=== PATIENT | male | born 1970 | race Caucasian/White ===

== ENCOUNTER → 2019-08-14 09:38 | Outpatient (BNVA) | payer OTHER, SELFPAY | PROVIDERS: Family Provider Family Medicine; Visit Provider Nurse Practitioner Psychiatric/Mental Health | DX: F43.12 Post-traumatic stress disorder, chronic (principal); F33.2 Major depressive disorder, recurrent severe without psychotic features; F10.21 Alcohol dependence, in remission; F17.220 Nicotine dependence, chewing tobacco, uncomplicated | CPT/HCPCS: 99214 ==

== ENCOUNTER → 2019-09-18 16:03 | Outpatient (BNVA) | payer OTHER, SELFPAY | PROVIDERS: Family Provider Family Medicine; Visit Provider Nurse Practitioner Psychiatric/Mental Health | DX: F43.12 Post-traumatic stress disorder, chronic (principal); F33.2 Major depressive disorder, recurrent severe without psychotic features; F10.21 Alcohol dependence, in remission; F17.220 Nicotine dependence, chewing tobacco, uncomplicated | CPT/HCPCS: 99213 ==

== ENCOUNTER → 2020-05-28 15:45 | Outpatient (BNVA) | payer BC, SELFPAY | PROVIDERS: Family Provider Family Medicine; PCP Family Medicine; Visit Provider Family Medicine | DX: I10 Essential (primary) hypertension (principal); N40.1 Benign prostatic hyperplasia with lower urinary tract symptoms; R39.11 Hesitancy of micturition | CPT/HCPCS: 80053; 80061; 82043; 84153; 85025 ==

== ENCOUNTER → 2020-05-30 15:02 | Outpatient (BNVA) | payer BC, SELFPAY | PROVIDERS: Family Provider Family Medicine; PCP Family Medicine; Visit Provider Family Medicine | DX: E87.5 Hyperkalemia (principal); R25.2 Cramp and spasm; Z68.39 Body mass index [BMI] 39.0-39.9, adult; F17.219 Nicotine dependence, cigarettes, with unspecified nicotine-induced disorders; Z71.6 Tobacco abuse counseling; Z71.89 Other specified counseling | CPT/HCPCS: 80048 ==

== ENCOUNTER → 2020-06-27 08:30 | Outpatient (BNVA) | payer BC, SELFPAY | PROVIDERS: Family Provider Family Medicine; PCP Family Medicine; Visit Provider Family Medicine | DX: N52.1 Erectile dysfunction due to diseases classified elsewhere (principal); E29.1 Testicular hypofunction | CPT/HCPCS: 84403 ==

== ENCOUNTER → 2020-09-30 15:46 | Outpatient (BNVA) | payer BC, SELFPAY | PROVIDERS: Family Provider Family Medicine; PCP Family Medicine; Referring Provider Dermatology; Visit Provider Podiatrist Foot & Ankle Surgery | DX: M79.672 Pain in left foot (principal) | CPT/HCPCS: 73630 ==

== ENCOUNTER → 2020-10-22 15:43 | Outpatient (BNVA) | payer BC, SELFPAY | PROVIDERS: Family Provider Family Medicine; PCP Family Medicine; Visit Provider Family Medicine | DX: M54.5 Low back pain (principal) | CPT/HCPCS: 80053; 85025; 85651; 86038; 86140; 86431; 86812 ==

== ENCOUNTER 2020-10-31 15:23 | Outpatient (CLI) | payer BC, SELFPAY ==
--- NOTE | 2020-10-31 15:34 | XR_ITS ---
WS: [id number] LUMBAR SPINE: 3 VIEWS TECHNIQUE: AP, lateral and L5-S1 spot. HISTORY: low back pain COMPARISON: 12/07/2016 Very mild RIGHT curvature lumbar spine. Advancing 6 mm retrolisthesis of L3. Degenerative disc diseas e at L3-4, greatest on the LEFT. There is asymmetric disc space narrowing with loss of the cortex. No fractures. Bilateral facet joint arthritis from L3-4 to L5-S1. SI joints are symmetric bilaterally. No soft tissue abnormalities. XR/XR lumbar spine 2-3V* [id number] IMPRESSION: 1. 6 mm retrolisthesis of L3 has progressed since 12/07/2016. 2. Asymmetric disc space narrowing with advancing degenerative changes greates t on the LEFT at L3-4. 3. Mild RIGHT curvature lumbar spine.
== END 2020-10-31 15:24 | disposition home or self-care (01) ==
LOC: RADWPI 15:29
PROVIDERS: Family Provider Family Medicine; PCP Family Medicine; Visit Provider Family Medicine
DX: M54.5 Low back pain (principal); M43.8X6 Other specified deforming dorsopathies, lumbar region
CPT/HCPCS: 72100

== ENCOUNTER → 2021-05-27 12:58 | Outpatient (BNVA) | payer BC, SELFPAY | PROVIDERS: Family Provider Family Medicine; PCP Family Medicine; Visit Provider Family Medicine | DX: I10 Essential (primary) hypertension (principal); N40.1 Benign prostatic hyperplasia with lower urinary tract symptoms; R39.11 Hesitancy of micturition | CPT/HCPCS: 80053; 80061; 82043; 85025; G0103 ==

== ENCOUNTER → 2022-01-02 15:17 | Outpatient (BNVA) | payer BC, SELFPAY | PROVIDERS: Family Provider Family Medicine; PCP Family Medicine; Visit Provider Family Medicine | DX: M54.50 Low back pain, unspecified (principal) | CPT/HCPCS: 80048 ==

== ENCOUNTER → 2022-07-03 14:48 | Outpatient (BNVA) | payer OTHER, SELFPAY | PROVIDERS: Family Provider Family Medicine; PCP Family Medicine; Visit Provider Family Medicine | DX: Z13.6 Encounter for screening for cardiovascular disorders (principal); J01.90 Acute sinusitis, unspecified; B96.89 Other specified bacterial agents as the cause of diseases classified elsewhere; R39.11 Hesitancy of micturition; N40.1 Benign prostatic hyperplasia with lower urinary tract symptoms | CPT/HCPCS: 80053; 80061; 84153; 85025 ==

== ENCOUNTER → 2023-01-01 12:13 | Outpatient (BNVA) | payer OTHER, SELFPAY | PROVIDERS: Family Provider Family Medicine; PCP Family Medicine; Visit Provider Family Medicine | DX: M15.9 Polyosteoarthritis, unspecified (principal) | CPT/HCPCS: 80048 ==

== ENCOUNTER → 2024-01-10 08:24 | Outpatient (BNVA) | payer OTHER, SELFPAY | PROVIDERS: Family Provider Family Medicine; PCP Family Medicine; Visit Provider Family Medicine | DX: Z13.6 Encounter for screening for cardiovascular disorders (principal); R35.1 Nocturia; N40.1 Benign prostatic hyperplasia with lower urinary tract symptoms; R39.11 Hesitancy of micturition | CPT/HCPCS: 80053; 80061; 84153; 85025 ==

== ENCOUNTER → 2024-09-04 15:59 | Outpatient (BNVA) | payer OTHER, SELFPAY | PROVIDERS: Family Provider Family Medicine; PCP Family Medicine | DX: R50.9 Fever, unspecified (principal); J40 Bronchitis, not specified as acute or chronic | CPT/HCPCS: 87400 ==

== ENCOUNTER → 2024-09-14 14:55 | Outpatient (BNVA) | payer OTHER, SELFPAY | PROVIDERS: Family Provider Family Medicine; PCP Family Medicine; Visit Provider Family Medicine | DX: R05.3 Chronic cough (principal) | CPT/HCPCS: 71046 ==

== ENCOUNTER → 2025-05-28 08:16 | Outpatient (BNVA) | payer OTHER, SELFPAY | PROVIDERS: Family Provider Family Medicine; PCP Family Medicine; Visit Provider Family Medicine | DX: Z13.6 Encounter for screening for cardiovascular disorders (principal); Z12.5 Encounter for screening for malignant neoplasm of prostate; N40.1 Benign prostatic hyperplasia with lower urinary tract symptoms; R39.11 Hesitancy of micturition | CPT/HCPCS: 80053; 80061; 83036; 85025; G0103 ==